=== PATIENT | female | born 1945 | race Caucasian/White ===

== ENCOUNTER 2018-02-11 11:01 | Inpatient (IN) | payer OTHER ==
[~2018-02-11] VITALS: Ht 157.5 cm; Wt 81.6 kg
[2018-02-11 12:31] LABS: BASOPHILS % (AUTO) 0.6 % (0.0-5.0); EOSINOPHILS % (AUTO) 0.4 % (0.0-8.0); HEMATOCRIT 40.6 % (36-48); LYMPHOCYTES % (AUTO) 20.3 % (21.0-51.0); MEAN CORPUSCULAR HEMOGLOBIN 33.4 pg (27.0-33.0); MEAN CORPUSCULAR HGB CONC 35.9 g/dL (32.0-36.0); MEAN CORPUSCULAR VOLUME 93.1 fL (79-99); NEUTROPHILS % (AUTO) 71.7 % (40.0-77.0); PLATELET COUNT (AUTO) 191 K/uL (130-400); RED BLOOD CELL COUNT(AUTO) 4.36 MIL/uL (4.00-5.50); RED CELL DISTRIBUTION WIDTH 14.3 % (11.0-15.5)
[2018-02-11 12:42] LABS: CREATININE 1.1 mg/dL (0.5-1.5); INR 1.04 (0.85-1.15); PARTIAL THROMBOPLASTIN TIME 25.2 SEC (26.3-35.5); POTASSIUM 4.3 mmol/L (3.5-5.1); PROTHROMBIN TIME 10.9 SEC (9.6-11.6)
[2018-02-11 12:46] LABS: BILIRUBIN,TOTAL 0.5 mg/dL (0.2-1.0); TOTAL PROTEIN, SERUM 8.7 g/dL (6.0-8.3)
[2018-02-11] MEDS ORDERED: ONDANSETRON HCL MDV 20ML 2 MG/ML VIAL ONE ×2 (13:08→14:52)
[2018-02-11] MEDS ORDERED: MORPHINE SULFATE 4 MG/1ML SYG ONE (13:09)
[2018-02-11] MEDS ORDERED: TRAMADOL HCL 50 MG TABLET ONE (14:51)
[2018-02-11] MEDS ORDERED: ENOXAPARIN SODIUM 40 MG/0.4 ML SYRINGE SQ SCH (18:00)
[2018-02-11] MEDS ORDERED: ACETAMINOPHEN 325 MG TAB PO PRN ×2 (18:00)
[2018-02-11] MEDS ORDERED: CLONIDINE HCL 0.1 MG TABLET PO PRN (18:00)
[2018-02-11] MEDS: SODIUM CHLORIDE 0.9% 1000ML 1,000 ML IV SCH ×2 (18:00→19:47)
[2018-02-11] MEDS ORDERED: LACTULOSE 20 GM/30 ML UDCUP PO PRN (18:00)
[2018-02-11] MEDS: DEXTROSE 5 %-0.45 % NACL 1,000 ML IV SCH (18:10)
[2018-02-11] MEDS ORDERED: RANO500T3 PO (18:18)
[2018-02-11] MEDS ORDERED: VENL75TA63 PO (18:18)
[2018-02-11] MEDS ORDERED: VALS1TAB81 PO (18:18)
[2018-02-11] MEDS ORDERED: ROSU10TA27 PO (18:18)
[2018-02-11] MEDS ORDERED: ISOS20TA7 PO (18:18)
[2018-02-11] MEDS ORDERED: METO-408 PO (18:18)
[2018-02-11 18:30] VITALS: BP 154/55
[2018-02-11] MEDS: MORPHINE SULFATE 4 MG/1ML SYG IVP PRN (18:33)
[2018-02-11] MEDS: METOPROLOL TARTRATE 25 MG TAB PO SCH (20:02)
[2018-02-11] MEDS: RANOLAZINE 500 MG TAB.SR.12H PO SCH (20:03)
[2018-02-11 20:07] VITALS: BP 155/81
[2018-02-11] MEDS ORDERED: PHARMACY COMMUNICATION MISC SCH (21:15)
[2018-02-11] MEDS: ONDANSETRON HCL MDV 20ML 2 MG/ML VIAL IVP PRN (21:48)
[2018-02-11] MEDS: TRAMADOL HCL 50 MG TABLET PO PRN (21:48)
[2018-02-12] VITALS (28 sets, daily range): BP systolic 100–158; BP diastolic 37–78
[2018-02-12] MEDS: MORPHINE SULFATE 4 MG/1ML SYG IVP PRN ×5 (00:39→22:31)
[2018-02-12] MEDS: DEXTROSE 5 %-0.45 % NACL 1,000 ML IV SCH ×2 (04:52→20:21)
[2018-02-12 05:34] LABS: HEMATOCRIT 38.9 % (36-48)
[2018-02-12 05:43] LABS: INR 1.03 (0.85-1.15); PROTHROMBIN TIME 10.8 SEC (9.6-11.6)
[2018-02-12 05:47] LABS: ALBUMIN 3.4 g/dL (3.5-5.0); BILIRUBIN,TOTAL 0.8 mg/dL (0.2-1.0); CREATININE 1.1 mg/dL (0.5-1.5); POTASSIUM 3.5 mmol/L (3.5-5.1); TOTAL PROTEIN, SERUM 7.5 g/dL (6.0-8.3)
[2018-02-12] MEDS ORDERED: CEFAZOLIN 2GM / 50 ML 50 ML IV SCH (06:30)
[2018-02-12] MEDS: ONDANSETRON HCL MDV 20ML 2 MG/ML VIAL IVP PRN ×3 (08:53→22:31)
[2018-02-12] MEDS: RANOLAZINE 500 MG TAB.SR.12H PO SCH ×2 (09:00→20:18)
[2018-02-12] MEDS: ISOSORBIDE MONONITRATE 20 MG TABLET PO SCH (09:00)
[2018-02-12] MEDS: ATORVASTATIN CALCIUM 20 MG TABLET PO SCH (09:00)
[2018-02-12] MEDS: VENLAFAXINE HCL 75 MG TAB PO SCH (09:00)
[2018-02-12] MEDS: LOSARTAN/HYDROCHLOROTHIAZIDE 50-12.5MG TABLET PO SCH (09:00)
[2018-02-12] MEDS: METOPROLOL TARTRATE 25 MG TAB PO SCH ×2 (09:24→20:18)
[2018-02-12] MEDS: CEFAZOLIN SODIUM 1 GM VIAL IVP SCH ×4 (09:30→23:56)
[2018-02-12] MEDS: GENTAMICIN 80 MG/NS 100 ML PB 100 ML IV SCH ×2 (09:30→11:10)
[2018-02-12] MEDS ORDERED: LACTATED RINGERS 1000ML 1,000 ML IV ONE (09:32)
[2018-02-12] MEDS ORDERED: ROPIVACAINE 0.5% 5MG/ML 30ML IJ ONE (10:50)
[2018-02-12] MEDS ORDERED: FENTANYL CITRATE PF 50 MCG/1 ML 2ML VIAL ONE ×2 (10:54→11:57)
[2018-02-12] MEDS ORDERED: PROPOFOL 10 MG/ML 20ML VIAL IV ONE (10:54)
[2018-02-12] MEDS ORDERED: ROCURONIUM BROMIDE 10MG/1ML 5ML VL ONE (11:57)
[2018-02-12] MEDS ORDERED: SUCCINYLCHOLINE CHLORIDE 20 MG/ML 10 ML VIAL ONE (11:57)
[2018-02-12] MEDS ORDERED: LIDOCAINE HCL-MPF 1% 5ML AMP IJ ONE (11:57)
[2018-02-12] MEDS ORDERED: EPHEDRINE SULFATE 50 MG/ML AMPULE ONE (12:19)
[2018-02-12] MEDS: SODIUM CHLORIDE 0.9% 1000ML 1,000 ML IV SCH (14:00)
[2018-02-12] MEDS: GENTAMICIN SULFATE 80 MG/2 ML VIAL IM SCH (17:25)
[2018-02-12] MEDS: PNEUMOCOCCAL VACCINE POLYVALENT 0.5 ML/VIAL [PPV] IM SCH (20:15)
[2018-02-13] MEDS: MORPHINE SULFATE 4 MG/1ML SYG IVP PRN ×2 (01:41→23:36)
[2018-02-13] MEDS: GENTAMICIN SULFATE 80 MG/2 ML VIAL IM SCH ×2 (02:27→09:50)
[2018-02-13 04:00] VITALS: BP 149/73
[2018-02-13] MEDS: DEXTROSE 5 %-0.45 % NACL 1,000 ML IV SCH (06:51)
[2018-02-13 07:30] VITALS: BP 140/42
[2018-02-13] MEDS: TRAMADOL HCL 50 MG TABLET PO PRN (09:42)
[2018-02-13] MEDS: METOPROLOL TARTRATE 25 MG TAB PO SCH ×2 (09:43→20:34)
[2018-02-13] MEDS: ATORVASTATIN CALCIUM 20 MG TABLET PO SCH (09:44)
[2018-02-13] MEDS: LOSARTAN/HYDROCHLOROTHIAZIDE 50-12.5MG TABLET PO SCH (09:44)
[2018-02-13] MEDS: RANOLAZINE 500 MG TAB.SR.12H PO SCH ×2 (09:44→20:34)
[2018-02-13] MEDS: VENLAFAXINE HCL 75 MG TAB PO SCH (09:44)
[2018-02-13] MEDS: ISOSORBIDE MONONITRATE 20 MG TABLET PO SCH (09:45)
[2018-02-13] MEDS: CEFAZOLIN SODIUM 1 GM VIAL IVP SCH (09:48)
[2018-02-13] MEDS: PNEUMOCOCCAL VACCINE POLYVALENT 0.5 ML/VIAL [PPV] IM SCH (09:58)
[2018-02-13] MEDS: SODIUM CHLORIDE 0.9% 1000ML 1,000 ML IV SCH ×4 (10:00→20:39)
[2018-02-13] MEDS ORDERED: ASPI-1026 PO (10:58)
[2018-02-13] MEDS ORDERED: TRAM50TA2 PO (10:58)
[2018-02-13 11:00] VITALS: BP 146/58
[2018-02-13 16:32] VITALS: BP 119/50
[2018-02-13 20:00] VITALS: BP 118/52
[2018-02-13] MEDS: ENOXAPARIN SODIUM 40 MG/0.4 ML SYRINGE SQ SCH (20:35)
[2018-02-13] MEDS: ONDANSETRON HCL MDV 20ML 2 MG/ML VIAL IVP PRN (23:35)
[2018-02-14] VITALS: BP 115/56
[2018-02-14 04:00] VITALS: BP 132/57
[2018-02-14 08:00] VITALS: BP 138/62
[2018-02-14] MEDS: LOSARTAN/HYDROCHLOROTHIAZIDE 50-12.5MG TABLET PO SCH (08:00)
[2018-02-14] MEDS: ISOSORBIDE MONONITRATE 20 MG TABLET PO SCH (08:03)
[2018-02-14] MEDS: VENLAFAXINE HCL 75 MG TAB PO SCH (08:03)
[2018-02-14] MEDS: ATORVASTATIN CALCIUM 20 MG TABLET PO SCH (08:04)
[2018-02-14] MEDS: RANOLAZINE 500 MG TAB.SR.12H PO SCH (08:04)
[2018-02-14] MEDS: ENOXAPARIN SODIUM 40 MG/0.4 ML SYRINGE SQ SCH (08:05)
[2018-02-14] MEDS: METOPROLOL TARTRATE 25 MG TAB PO SCH (08:15)
[2018-02-14 11:46] VITALS: BP 128/68
[2018-02-14 16:25] VITALS: BP 97/49
[2018-02-14 18:00] VITALS: BP 102/50
[2018-04-15] MEDS ORDERED: OMEP20TA25 PO (14:05)
== END 2018-02-14 19:05 | disposition home health service (06) | DRG 494 ==
LOC: EDH 11:01 → EDHIP 12:27 → OBSVTOIN 12:27 → 4BH 16:40
PROVIDERS: ADMIT Family Medicine; ATTEND Family Medicine
PROC: 0QHH04Z Insertion of Internal Fixation Device into Left Tibia, Open Approach (ICD-10-PCS; 2018-02-12)
PROC: 0SSG0ZZ Reposition Left Ankle Joint, Open Approach (ICD-10-PCS; 2018-02-12)
PROC: 0QHK04Z Insertion of Internal Fixation Device into Left Fibula, Open Approach (ICD-10-PCS; 2018-02-12 11:14)
PROC: 0QHH04Z Insertion of Internal Fixation Device into Left Tibia, Open Approach (ICD-10-PCS; 2018-02-12 11:14)
PROC: 3E0234Z Introduction of Serum, Toxoid and Vaccine into Muscle, Percutaneous Approach (ICD-10-PCS; principal; 2018-02-13)
DX: S82.852A Displaced trimalleolar fracture of left lower leg, initial encounter for closed fracture (principal); I10 Essential (primary) hypertension; W01.0XXA Fall on same level from slipping, tripping and stumbling without subsequent striking against object, initial encounter; Y93.01 Activity, walking, marching and hiking; Z23 Encounter for immunization; Y92.89 Other specified places as the place of occurrence of the external cause; Y99.8 Other external cause status; Z85.44 Personal history of malignant neoplasm of other female genital organs; Z88.5 Allergy status to narcotic agent
CPT/HCPCS: 36415; 71045; 73610; 73630; 76000; 80053; 85014; 85018; 85025; 85610; 85730; 90732; 93005; 97039; A4218; J0330; J0690; J1580; J1650; J2270; J2704; J2795; J3010; J3490; J7042; J7120

== ENCOUNTER 2018-04-16 06:56 | Day surgery (SDC) | payer OTHER ==
[2018-04-15 13:58] VITALS: BP 110/54
[2018-04-16] VITALS (15 sets, daily range): BP systolic 118–155; BP diastolic 50–78
[~2018-04-16] VITALS: Ht 157.5 cm; Wt 79.8 kg
[~2018-04-16 06:56] MED LIST: ISOS20TA7 PO; METO-408 PO; OMEP20TA25 PO; RANO500T3 PO; ROSU10TA27 PO; VALS1TAB81 PO; VENL75TA63 PO
[2018-04-16] MEDS ORDERED: LACTATED RINGERS 1000ML 1,000 ML IV ONE (07:05)
[2018-04-16] MEDS: CEFAZOLIN SODIUM 1 GM VIAL IVP ONE ×2 (07:28→08:35)
[2018-04-16] MEDS ORDERED: MIDAZOLAM HCL 1 MG/ML 2ML VIAL ONE (07:29)
[2018-04-16] MEDS ORDERED: PROPOFOL 10 MG/ML 20ML VIAL IV ONE (07:29)
[2018-04-16] MEDS ORDERED: FENTANYL CITRATE PF 50 MCG/1 ML 2ML VIAL ONE ×2 (07:30→09:06)
[2018-04-16] MEDS ORDERED: WATER FOR INJECTION,STERILE 20 ML VIAL IJ ONE (08:00)
[2018-04-16] MEDS ORDERED: GLYCOPYRROLATE 1 MG/5 ML SYRINGE ONE (09:06)
[2018-04-16] MEDS ORDERED: LIDOCAINE PF 2% 5ML ABBOJECT ONE (09:06)
[2018-04-16] MEDS ORDERED: ROCURONIUM BROMIDE 10MG/1ML 5ML VL ONE (09:07)
[2018-04-16] MEDS ORDERED: ONDANSETRON HCL 4 MG/2 ML VIAL ONE (09:07)
[2018-04-16] MEDS ORDERED: NEOSTIGMINE 5MG/5ML SYR IV ONE (09:07)
[2018-04-16] MEDS ORDERED: IPRATROPIUM/ALBUTEROL SULFATE 3 ML SOLUTION IH ONE (10:15)
== END 2018-04-16 11:15 | disposition home or self-care (01) ==
LOC: DAH 06:56
DX: T84.84XA Pain due to internal orthopedic prosthetic devices, implants and grafts, initial encounter (principal); E78.00 Pure hypercholesterolemia, unspecified; K21.9 Gastro-esophageal reflux disease without esophagitis; F32.9 Major depressive disorder, single episode, unspecified; I10 Essential (primary) hypertension; Z82.49 Family history of ischemic heart disease and other diseases of the circulatory system; Z79.899 Other long term (current) drug therapy; Z88.6 Allergy status to analgesic agent; Y83.8 Other surgical procedures as the cause of abnormal reaction of the patient, or of later complication, without mention of misadventure at the time of the procedure
CPT/HCPCS: 20680; 76000; 88300; 94640; A4649; A4930; A6223; A6446; J0690; J2001; J2250; J2405; J2704; J2710; J3010 ×2; J3490 ×2; J7120

== ENCOUNTER → 2022-06-03 | Outpatient (CLI) | payer MEDICARE ==
[~2022-06-03] MED LIST changes: -ISOS20TA7 PO; +ISOS20TA85 PO; +OMEP20TA20 PO; -OMEP20TA25 PO; -ROSU10TA27 PO; +ROSU10TA28 PO; +VENL-191 PO; -VENL75TA63 PO
== END | disposition home or self-care (01) ==
LOC: RAH 14:30
PROVIDERS: ATTEND Family Medicine
DX: I73.9 Peripheral vascular disease, unspecified (principal)
CPT/HCPCS: 93925